=== PATIENT | female | born 1965 | race Caucasian/White ===

== ENCOUNTER → 2022-07-04 | Outpatient (CLI) | payer MEDICAID, SELFPAY ==
--- NOTE | 2022-07-04 13:37 | MRI_ITS ---
ACR Level 3 findings have been noted. An addendum which confirms receipt of the report will follow. PROCEDURE: LUMBAR SPINE MRI WITHOUT CONTRAST COMPARISONS: None CLINICAL INDICATION: pain in back for many years, foot drop x 6 months TECHNIQUE: Noncontrast lumbosacral spine MRI study was performed multiple sequences in sagittal and axial planes. FINDINGS: Mild levoscoliosis. Slight L1-2 retrolisthesis. Slight L4-5 anterolisthesis. Normal vertebral marrow signal. Normal partially visualized sacroiliac joints. The conus medullaris terminates at the level of L2. 3.8 cm syrinx with a 1 mm caliber just above the conus. L1-L2: Mild disc bulge. Normal spinal canal and neuroforamina. L2-L3: Mild disc bulge and facet arthrosis. Normal spinal canal and neuroforamina. L3-L4: Disc bulge and facet arthrosis. No significant spinal canal or neural foraminal stenosis. L4-L5: Disc bulge and facet arthrosis crowds both traversing L5 nerve roots in the lateral recesses. No neural foraminal stenosis L5-S1: Normal disc height and morphology. Mild facet arthrosis. Normal spinal canal and neuroforamina. Mild paraspinous muscle fatty infiltration. MRI/Spine Lumbar (Routine) IMPRESSION: 1. There is a 1 mm caliber syrinx measuring 2.8 cm in length beginning just above the conus. 2. Mild degenerative change detailed above. Electronically Signed: Sami Hu MD at 22:53 EDT ,
== END | disposition home or self-care (01) ==
LOC: MRI 13:34
PROVIDERS: PCP Family Medicine; Referring Provider Orthopaedic Surgery; Visit Provider Orthopaedic Surgery
DX: M51.26 Other intervertebral disc displacement, lumbar region (principal)
CPT/HCPCS: 72148

== ENCOUNTER → 2023-03-30 | Outpatient (CLI) | payer MEDICAID, SELFPAY ==
--- NOTE | 2023-03-30 11:00 | MRI_ITS ---
STUDY: MRI LEFT SHOULDER REASON FOR EXAM: Female, 57 years old. Pain, rule out cuff tear. TECHNIQUE: Standardized fat and water weighted pulse sequences were obtained in all 3 orthogonal planes. COMPARISON: Left shoulder radiographs dated 07/22/2022. FINDINGS: Normal supraspinatus tendon. Normal infraspinatus tendon. Normal subscapularis tendon. Normal teres minor tendon. Normal supraspinatus muscle. Normal infraspinatus muscle. Normal subscapularis muscle. Normal teres minor muscle. There is enthesopathic subcortical cyst formation of the greater and lesser tuberosities of the humeral head (coronal T2 series 6 images 8-11). There is a small focus of subchondral edema/cyst formation in the posterior-superior aspect of the glenoid. Normal biceps labral complex. Normal intracapsular long biceps tendon. Normal labrum. Normal capsulo-ligamentous complex. Normal rotator interval. There is mild hypertrophic acromioclavicular arthrosis, with inferior osteophyte formation, with mild effacement of the supraspinatus myotendinous junction. There is a Type II morphology (curved), with a neutral orientation. There is trace subacromial-subdeltoid bursal fluid. Normal visualized coracohumeral and coracoacromial ligaments. Normal quadrilateral space. Normal axillary space. Normal deltoid muscle. Normal trapezius muscle. MRI/Upper Ext Joint Only(Routine) IMPRESSION: Mild hypertrophic acromioclavicular arthrosis, with inferior osteophyte formation, with mild effacement of the supraspinatus myotendinous junction. Minimal subacromial-subdeltoid bursitis. Small focus of subchondral edema/cyst formation in the posterior-superior aspect of the glenoid. No rotator cuff tear or discrete labral tear. Electronically Signed: López Miller MD at 8:41 EST ,
== END | disposition home or self-care (01) ==
LOC: MRI 10:28
PROVIDERS: PCP Family Medicine; Referring Provider Orthopaedic Surgery Sports Medicine; Visit Provider Orthopaedic Surgery Sports Medicine
DX: M25.512 Pain in left shoulder (principal)
CPT/HCPCS: 73221